=== PATIENT | female | born 1955 | race African-American/Black ===

== ENCOUNTER → 2017-03-22 | Outpatient (CLI) | payer OTHER ==
--- NOTE | 2017-03-23 08:24 | WOMENS IMAGING REPORT ---
EXAM DESCRIPTION: BILAT SCREENING MAMMO W/CAD COMPLETED DATE/TIME: 03/22/2017 9:56 am REASON FOR STUDY: Z12.31, ROUITNE SCREENING MAMMO Z12.31 ENCNTR SCREEN MAMMOGRAM FOR MALIGNANT NEOP LASM OF ALEXANDRA COMPARISON: 2015 TECHNIQUE: Standard craniocaudal and mediolateral oblique views of each breast recorded using MicroPort ([employer]a l acquisition. LIMITATIONS: None. FINDINGS: Findings present which are benign by mammographic criteria. No suspicious masses, calcifi cations or architectural distortion. Pertinent benign findings: Stable bilateral breast parenchymal calcifications. Bilateral stable intr amammary lymph nodes. Stable subcentimeter nodule left breast 5 to 6 o'clock position Read with the assistance of CAD. .[facility] - R2 Cenova Version 1.3 .[facility] Imaging - R2 Cenova Version 1.3 .[facility] - R2 Cenova Version 2.4 .[facility] - R2 Cenova Version 2.4 .[facility] - R2 Fbi Field Agent Version 9.2 Benign mammographic findings may include one or more of the following: Smooth masses, popcorn/rim/co arse calcifications, asymmetries, post-procedure changes, and lesions with long-standing stability. IMPRESSION: BENIGN MAMMOGRAPHIC FINDINGS. BIRADS 2 BREAST DENSITY: b. There are scattered areas of fibroglandular density. BIRAD: 2 BENIGN FINDING(S) RECOMMENDATION: ROUTINE SCREENING COMMENT: The patient has been notified of the results by letter per SA requirements. Additional no tification policies are in place for contacting patient with suspicious or incomplete findings. Quality ID #[id number]: The [employer] recommends an annual screening mammogram for women aged 40 years or over. This facility utilizes a reminder system to ensure that all patients receive reminder letters, and/or direct phone calls for appointments. This includes reminders for routine scr eening mammograms, diagnostic mammograms, or other Breast Imaging Interventions when appropriate. Th is patient will be placed in the appropriate reminder system. The [employer] (ACR) has developed recommendations for screening MRI of the breast s in certain patient populations, to be used in conjunction with mammography. Breast MRI surveillanc e may be appropriate for women with more than 20% lifetime risk of developing breast cancer as deter mined by genetic testing, significant family history of the disease, or history of mantle radiation f or Hodgkins Disease. ACR Practice Guidelines 2008. TECHNICAL DOCUMENTATION: FINDING NUMBER: (1) ASSESSMENT: (1) JOB ID: [id number] [facility] [place]- All Rights Reserved
== END ==
LOC: WI 08:50
PROVIDERS: ATTEND Nurse Practitioner Family
DX: Z12.31 Encounter for screening mammogram for malignant neoplasm of breast (principal)
CPT/HCPCS: 77067; G0202

== ENCOUNTER 2017-06-07 09:48 | Day surgery (SDC) | payer OTHER ==
[~2017-06-07 09:48] MED LIST: KETOROLAC TROMETHAMINE 0.45% 4 DROP/0.4 ML DROPERETTE OS PRN; LIDOCAINE 3.5% OPH GEL/PF 1 ML/TUBE OS PRN
[2017-06-07] MEDS ORDERED: LIDOCAINE 1% INJ-PF (10 MG/ML) 30 ML SDV ONE (10:02)
[2017-06-07] MEDS ORDERED: EPINEPHRINE INJ/PF 1 MG/1 ML AMPULE ONE (10:02)
[2017-06-07] MEDS ORDERED: TRYPAN BLUE 0.06 % OPH SOLN 0.5 ML DISP.SYRIN ONE (10:03)
[2017-06-07] MEDS ORDERED: CHONDR SU A NA/HYALUR INTRAOC KIT (SURGICARE) ONE (10:03)
[2017-06-07] MEDS: TETRACAINE HCL 0.5% OPH SOLN 2 ML OS PRN ×3 (10:08→10:45)
[2017-06-07] MEDS: CYCLOPENTOLATE 0.2%/PHENYLEPHRINE 1% OPH SOLN 2 ML OS PRN ×3 (10:09→10:32)
[2017-06-07] MEDS: TROPICAMIDE 1% OPH SOLN 3 ML OS PRN ×3 (10:09→10:32)
[2017-06-07] MEDS: BESIFLOXACIN HCL 0.6% OPH SUSP 5 ML BOTTLE OS PRN ×3 (10:10→11:06)
[2017-06-07] MEDS ORDERED: MIDAZOLAM 2 MG/2 ML INJ ONE ×2 (10:29)
--- NOTE | 2017-06-08 08:02 | [facility] OPERATIVE REPORT E ---
[facility] Operative Report NAME: GREGORIO POTTER AGE: 62Y DATE OF SURGERY: 06/07/2017 ROOM: PREOPERATIVE DIAGNOSIS: CATARACT, LEFT EYE. POSTOPERATIVE DIAGNOSIS: CATARACT, LEFT EYE. OPERATION: Cataract extraction with intraocular lens implant of the left eye. SURGEON: ROSALINO DANIELLE M.D. ANESTHESIA: Topical. PROCEDURE: After obtaining appropriate consent, the patient's left eye was prepped and draped in sterile fashion as well as the surgeon in a sterile manner and cataract surgery was started. First a paracentesis blade was used to make a small side-port incision. Viscoelastic was used to inflate the anterior chamber. Next a 2.4 mm incision was made with the paracentesis blade. A continuous capsulorrhexis incision was made using a cystotome and Utrata forceps. Following this hydrodissection was carried out to make the lens fully loose and mobile and it was rotated 90 degrees. Following this, a acipju-goz-lwssutz technique was used to phacoemulsify the lens with a CDE of 4.79. The remaining cortex was removed with irrigation/aspiration. Provisc was instilled into the capsular bag to inflate the bag. A SN60WF, 19.5 diopter lens was placed. The remaining viscoelastic material was removed with irrigation/aspiration. Following this, a 10-0 nylon suture was used to close the incision and it was found to be watertight. Vigamox was instilled in the eye and a protective shield was placed over the eye. The patient returned to the postoperative recovery in stable condition. DICTATING PHYSICIAN: ROSALINO DANIELLE M.D. [id number] PHY#: [id number] ID: [id number] JOB#: [id number] ACCT: [id number] cc:ROSALINO DANIELLE M.D. >
--- NOTE | 2017-06-08 08:07 | [facility] DISCHARGE SUMMARY E ---
[facility] Discharge Summary NAME: GREGORIO POTTER AGE: 62Y ADMITTED: 06/07/2017 DISCHARGED: 06/07/2017 HOSPITAL COURSE This is a 62-year-old patient who underwent cataract surgery of the left eye. DIAGNOSIS: CATARACT, LEFT EYE. INDICATIONS: He underwent surgery because he started having difficulty seeing small print and having glare secondary to headlights when driving. DISCHARGE INSTRUCTIONS: He is to be on a regular diet; no bending at the waist; no heavy lifting; he is to use Besivance, Ilevro and Durezol at 3:00 p.m. and 8:00 p.m.; and, sleep with a rigid shield; and I will see him for his 1-day postoperative tomorrow. DICTATING PHYSICIAN: ROSALINO DANIELLE M.D. [id number] PHY#: [id number] ID: [id number] JOB#: [id number] ACCT: [id number] cc:ROSALINO DANIELLE M.D. >
--- NOTE | 2017-06-08 11:38 | [facility] OPERATIVE REPORT E ---
[facility] Operative Report NAME: GREGORIO POTTER AGE: 62Y DATE OF SURGERY: 06/07/2017 ROOM: PREOPERATIVE DIAGNOSIS: CATARACT, LEFT EYE. POSTOPERATIVE DIAGNOSIS: CATARACT, LEFT EYE. OPERATION: Cataract extraction with intraocular lens implant of the left eye. SURGEON: ROSALINO DANIELLE M.D. ANESTHESIA: Topical. PROCEDURE: After obtaining appropriate consent, the patient's left eye was prepped and draped in sterile fashion as well as the surgeon in a sterile manner and cataract surgery was started. First a paracentesis blade was used to make a small side-port incision. Viscoelastic was used to inflate the anterior chamber. Next a 2.4 mm incision was made with the paracentesis blade. A continuous capsulorrhexis incision was made using a cystotome and Utrata forceps. Following this hydrodissection was carried out to make the lens fully loose and mobile and it was rotated 90 degrees. Following this, a cfhcuv-tbc-fqxycqg technique was used to phacoemulsify the lens with a CDE of 4.79. The remaining cortex was removed with irrigation/aspiration. Provisc was instilled into the capsular bag to inflate the bag. A SN60WF, 19.5 diopter lens was placed. The remaining viscoelastic material was removed with irrigation/aspiration. Following this, a 10-0 nylon suture was used to close the incision and it was found to be watertight. Vigamox was instilled in the eye and a protective shield was placed over the eye. The patient returned to the postoperative recovery in stable condition. DICTATING PHYSICIAN: ROSALINO DANIELLE M.D. [id number] [id number] PHY#: [id number] ID: [id number] JOB#: [id number] ACCT: [id number] cc:ROSALINO DANIELLE M.D. >
--- NOTE | 2017-06-08 11:43 | [facility] DISCHARGE SUMMARY E ---
[facility] Discharge Summary NAME: GREGORIO POTTER AGE: 62Y ADMITTED: 06/07/2017 DISCHARGED: 06/07/2017 HOSPITAL COURSE: This is a 62-year-old patient who underwent cataract extraction of the left eye. DIAGNOSIS: Cataract, left eye. INDICATIONS: She underwent surgery because she was having difficulty driving at night secondary to glare. DISCHARGE INSTRUCTIONS: She should be on a regular diet. No bending at her waist. No heavy lifting. She should use her Besivance, Ilevro, and Durezol at 3 p.m. and 8 p.m. and sleep with a rigid shield. I will see her for her 1 day postoperative tomorrow. DICTATING PHYSICIAN: ROSALINO DANIELLE M.D. [id number] PHY#: [id number] ID: [id number] JOB#: [id number] ACCT: [id number] cc:ROSALINO DANIELLE M.D. >
== END 2017-06-07 11:51 | disposition home or self-care (01) ==
LOC: SC 09:48
PROVIDERS: ATTEND Internal Medicine
PROC: 08RK3JZ Replacement of Left Lens with Synthetic Substitute, Percutaneous Approach (ICD-10-PCS; principal; 2017-06-07 11:00)
DX: H25.89 Other age-related cataract (principal); E78.00 Pure hypercholesterolemia, unspecified; I10 Essential (primary) hypertension; Z79.82 Long term (current) use of aspirin; Z79.899 Other long term (current) drug therapy
CPT/HCPCS: 66984; V2632; J2250; J3490 ×2; J0171; 142

== ENCOUNTER 2017-06-28 11:03 | Day surgery (SDC) | payer OTHER ==
[~2017-06-28 11:03] MED LIST changes: +BESIFLOXACIN HCL 0.6% OPH SUSP 5 ML BOTTLE OD PRN; +CHONDR SU A NA/HYALUR INTRAOC KIT (SURGICARE) ONE; +CYCLOPENTOLATE 0.2%/PHENYLEPHRINE 1% OPH SOLN 2 ML OD PRN; +EPINEPHRINE INJ/PF 1 MG/1 ML AMPULE ONE; +KETOROLAC TROMETHAMINE 0.45% 4 DROP/0.4 ML DROPERETTE OD PRN; -KETOROLAC TROMETHAMINE 0.45% 4 DROP/0.4 ML DROPERETTE OS PRN; +LIDOCAINE 1% INJ-PF (10 MG/ML) 30 ML SDV ONE; -LIDOCAINE 3.5% OPH GEL/PF 1 ML/TUBE OS PRN; +TETRACAINE HCL 0.5% OPH SOLN 2 ML OD PRN; +TROPICAMIDE 1% OPH SOLN 3 ML OD PRN; +TRYPAN BLUE 0.06 % OPH SOLN 0.5 ML DISP.SYRIN ONE
== END 2017-06-28 11:15 | disposition home or self-care (01) ==
LOC: SC 11:03
PROVIDERS: ATTEND Internal Medicine
DX: H25.89 Other age-related cataract (principal); R69 Illness, unspecified
CPT/HCPCS: J0171; J3490

== ENCOUNTER 2017-10-04 06:23 | Day surgery (SDC) | payer OTHER ==
[~2017-10-04 06:23] MED LIST changes: -BESIFLOXACIN HCL 0.6% OPH SUSP 5 ML BOTTLE OD PRN; -CHONDR SU A NA/HYALUR INTRAOC KIT (SURGICARE) ONE; -CYCLOPENTOLATE 0.2%/PHENYLEPHRINE 1% OPH SOLN 2 ML OD PRN; -EPINEPHRINE INJ/PF 1 MG/1 ML AMPULE ONE; -LIDOCAINE 1% INJ-PF (10 MG/ML) 30 ML SDV ONE; -TETRACAINE HCL 0.5% OPH SOLN 2 ML OD PRN; -TROPICAMIDE 1% OPH SOLN 3 ML OD PRN; -TRYPAN BLUE 0.06 % OPH SOLN 0.5 ML DISP.SYRIN ONE
[2017-10-04] MEDS ORDERED: FENTANYL CITRATE INJ/PF 100 MCG/2 ML AMPUL ONE (06:42)
[2017-10-04] MEDS ORDERED: MIDAZOLAM 2 MG/2 ML INJ ONE (06:42)
[2017-10-04] MEDS: BESIFLOXACIN HCL 0.6% OPH SUSP 5 ML BOTTLE OD PRN ×4 (06:55→08:04)
[2017-10-04] MEDS: CYCLOPENTOLATE 0.2%/PHENYLEPHRINE 1% OPH SOLN 2 ML OD PRN ×3 (06:55→07:15)
[2017-10-04] MEDS: TROPICAMIDE 1% OPH SOLN 3 ML OD PRN ×3 (06:55→07:15)
[2017-10-04] MEDS: TETRACAINE HCL 0.5% OPH SOLN 2 ML OD PRN ×3 (06:56→07:40)
[2017-10-04] MEDS ORDERED: TRYPAN BLUE 0.06 % OPH SOLN 0.5 ML DISP.SYRIN ONE (07:09)
[2017-10-04] MEDS ORDERED: CHONDR SU A NA/HYALUR INTRAOC KIT (SURGICARE) ONE ×2 (07:09→07:25)
[2017-10-04] MEDS ORDERED: EPINEPHRINE INJ/PF 1 MG/1 ML AMPULE ONE ×2 (07:09→07:33)
[2017-10-04] MEDS ORDERED: LIDOCAINE 1% INJ-PF (10 MG/ML) 30 ML SDV ONE (07:09)
--- NOTE | 2017-10-04 19:44 | [facility] OPERATIVE REPORT E ---
[facility] Operative Report NAME: GREGORIO POTTER AGE: 62Y DATE OF SURGERY: 10/04/2017 ROOM: PREOPERATIVE DIAGNOSIS: CATARACT, RIGHT EYE. POSTOPERATIVE DIAGNOSIS: CATARACT, RIGHT EYE. OPERATION: Cataract extraction with intraocular lens implant of the right eye. SURGEON: ROSALINO DANIELLE M.D. ANESTHESIA: Topical. PROCEDURE: After obtaining appropriate consent, the patient's right eye was prepped and draped in sterile fashion as well as the surgeon in a sterile manner and cataract surgery was started. First a paracentesis blade was used to make a small side-port incision. Viscoelastic was used to inflate the anterior chamber. Next a 2.4 mm incision was made with the paracentesis blade. A continuous capsulorrhexis incision was made using a cystotome and Utrata forceps. Following this hydrodissection was carried out to make the lens fully loose and mobile and it was rotated 90 degrees. Following this, a mtukpe-qcn-heipmtg technique was used to phacoemulsify the lens with a CDE of 2.45. The remaining cortex was removed with irrigation/aspiration. Provisc was instilled into the capsular bag to inflate the bag. A SN60WF, 19.5 diopter lens was placed. The remaining viscoelastic material was removed with irrigation/aspiration. Following this, a 10-0 nylon suture was used to close the incision and it was found to be watertight. Vigamox was instilled in the eye and a protective shield was placed over the eye. The patient returned to the postoperative recovery in stable condition. DICTATING PHYSICIAN: ROSALINO DANIELLE M.D. [id number] PHY#: [id number] ID: [id number] JOB#: [id number] ACCT: [id number] cc:ROSALINO DANIELLE M.D. >
--- NOTE | 2017-10-04 19:58 | [facility] DISCHARGE SUMMARY E ---
[facility] Discharge Summary NAME: GREGORIO POTTER AGE: 62Y ADMITTED: 10/04/2017 DISCHARGED: 10/04/2017 FINAL DIAGNOSIS: CATARACT, RIGHT EYE. HISTORY/CLINIC COURSE: This is a 62-year-old patient who underwent cataract extraction without complication, woke up in postoperative recovery in stable condition. He underwent surgery because he was having difficulty with glare at night, making it difficult to drive. Patient is to be on a regular diet. No bending at the waist, no heavy lifting. Patient should use the Besivance, Ilevro, and Durezol at 3 p.m. and 8 p.m., and sleep with a rigid shield. I will see him for 1 day postoperative tomorrow. DICTATING PHYSICIAN: ROSALINO DANIELLE M.D. [id number] PHY#: [id number] ID: [id number] JOB#: [id number] ACCT: [id number] cc:ROSALINO DANIELLE M.D. >
== END 2017-10-04 08:38 | disposition home or self-care (01) ==
LOC: SC 06:23
PROVIDERS: ATTEND Internal Medicine
PROC: 08RJ3JZ Replacement of Right Lens with Synthetic Substitute, Percutaneous Approach (ICD-10-PCS; principal; 2017-10-04 07:30)
DX: H25.89 Other age-related cataract (principal); H20.042 Secondary noninfectious iridocyclitis, left eye
CPT/HCPCS: 66984; V2632; J2250; J3490 ×2; J0171; J3010; 142

== ENCOUNTER → 2018-12-25 | Outpatient (CLI) | payer OTHER ==
[2018-12-26 16:39] LABS: HGB SOLUBILITY RESULT Negative (Negative)
[2018-12-26 17:37] LABS: CYTOPLASMIC (C-ANCA) <1:20 titer (Neg:<1:20)
[2018-12-27 10:43] LABS: ATYPICAL PANCA <1:20 titer (Neg:<1:20); PERINUCLEAR (P-ANCA) <1:20 titer (Neg:<1:20)
== END ==
LOC: OD 12:27
PROVIDERS: ATTEND Ophthalmology
DX: H35.61 Retinal hemorrhage, right eye (principal); H35.063 Retinal vasculitis, bilateral; H35.443 Age-related reticular degeneration of retina, bilateral
CPT/HCPCS: 36415; 82164; 83020; 86021

== ENCOUNTER 2019-06-03 09:39 | Emergency (ER) | payer OTHER ==
--- NOTE | 2019-06-03 09:54 | ER Document Report ---
ED Medical Screen (RME) - General Chief Complaint: S/S of Possible Stroke Stated Complaint: STROKE LIKE SYMPTOMS Time Seen by Provider: 06/03/19 09:45 Primary Care Provider: SUSIE BAUER MD [Primary Care Provider] - Follow up as needed Information source: Patient, Relative - Notes: HPI: 64-year-old female accompanied by her significant other who was awakened by her about a hour ago stating that she needed help. He noticed left-sided facial droop, slurred speech, and weakness so he brought her in. He states at about 5 PM last night was when he last saw her before he went to bed and she was her usual self then, and he did not see her again until she woke him up about 8:30a and she was having these sx so he brought her in. ros: denies pain, left sided weakness, PE:>>>> PHYSICAL_EXAM: GENERAL_APPEARANCE: well_nourished, alert, cooperative, no_acute_distress, mild_obvious_discomfort. pleasant, left sided facial droop, some slurred speech and delayed response time, , in no sign of pain or resp distress, VITALS: reviewed, see vital signs table. HEAD: no_swelling\tenderness on the head. atraumatic. no thomas signs. no raccoons eyes. EYES: PERRL, EOMI, conjunctiva_clear. NOSE: no_nasal_discharge. MOUTH: (-)decreased moisture. THROAT: no_tonsilar_inflammation, no_airway_obstruction. NECK: supple, no_neck_tenderness, full rom. full strength. LUNGS: no_wheezing, ctab (-)accessory muscle use, good air exchange bilateral. HEART: normal_rate, normal_rhythm, EXTREMITIES: strength 5/5 in all_extremities but left arm is 4/5, good pulses in all_extremities, no_swelling\tenderness in the extremities, no_edema. full rom. gait not assessed. good pulses. brisk cap refill. 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 NEURO: left facial droop, slurred speech, left arm weakness, symmetric forehead rise. SKIN: warm, dry, good_color, no_rash. MENTAL_STATUS: speech_delayed and slurred, oriented_X_3, blunted_affect, responds_appropriately to questions eventually but only answers in 1-2 words. i did a brief assessment of pt and pt taken immediately to CT. charge nurse informed this could be a code stroke. MDM: I have ordered labs and initial work-up and patient will be transferred to the main ER for further work-up. I have greeted and performed a rapid initial assessment of this patient. A comprehensive ED assessment and evaluation of the patient, analysis of test results and completion of medical decision making process will be conducted by an additional ED providers. Documentation achieved through voice recording which my lead to some occasional accidental typographical errors. Extensive efforts have been made to proof read documentation to make sure these are the least as possible Category Date Time Status Accucheck (ED) NOW Care 06/03/19 09:41 Active Continuous Cardiac Monitoring (ED) CONTINUOUS Care 06/03/19 09:41 Active ED Nursing Stroke Protocol NOW Care 06/03/19 09:41 Active EKG Documentation STAT Care 06/03/19 09:42 Active Head of Bed >30 Degrees (ED) NOW Care 06/03/19 09:41 Active MEND Neuro Exam STAT,Q3 Care 06/03/19 09:41 Active Oxygen (ED) Nasal Cannula 2 lpm Care 06/03/19 09:41 Active PCT AccuChek Documentation NOW Care 06/03/19 09:42 Active Pulse Oximeter Continuous (ED) CONTINUOUS Care 06/03/19 09:41 Active Saline Lock (ED) NOW Care 06/03/19 09:41 Active Vital Signs (ED) .Q15m X4 Care 06/03/19 09:41 Active CHEST SINGLE VIEW [RAD] Stat Exams 06/03/19 09:[address] HEAD WITHOUT [CT] Stat Exams 06/03/19 09:41 Ordered CBC WITH DIFF [HEME] Stat Lab 06/03/19 09:41 Ordered COMPREHENSIVE METABOLIC PANEL [CHEM] Stat Lab 06/03/19 09:41 Ordered CREATINE KINASE MB [CHEM] Stat Lab 06/03/19 09:41 Ordered CREATINE KINASE [CHEM] Stat Lab 06/03/19 09:41 Ordered PARTIAL THROMBOPLASTIN TIME [COAG] Stat Lab 06/03/19 09:41 Ordered PROTHROMBIN TIME/INR STROKE [COAG] Stat Lab 06/03/19 09:41 Ordered TROPONIN I [CHEM] Stat Lab 06/03/19 09:41 Ordered EKG ER ONLY [ER] Stat Oth 06/03/19 09:41 Ordered TRAVEL OUTSIDE OF THE [place] IN LAST 30 DAYS: No - Related Data Allergies/Adverse Reactions: seasonal Allergy (Uncoded 06/03/19 09:40) Past Medical History - Past Medical History Cardiac Medical History: Reports: Hx Hypercholesterolemia, Hx Hypertension Denies: Hx Heart Attack Pulmonary Medical History: Denies: Hx Asthma Neurological Medical History: Denies: Hx Cerebrovascular Accident, Hx Seizures GI Medical History: Denies: Hx Hepatitis, Hx Hiatal Hernia, Hx Ulcer Infectious Medical History: Denies: Hx Hepatitis Past Surgical History: Reports: Hx Cardiac Catheterization, Hx Section. Denies: Hx Mastectomy, Hx Open Heart Surgery - stents X1 2013, Hx Pacemaker - Immunizations Hx Diphtheria, Pertussis, Tetanus Vaccination: No Doctor's Discharge - Discharge Referrals: SUSIE BAUER MD [Primary Care Provider] - Follow up as needed
--- NOTE | 2019-06-03 10:20 | RADIOLOGY REPORT (SQ) ---
EXAM DESCRIPTION: CT HEAD WITHOUT COMPLETED DATE/TIME: 06/03/2019 9:57 am REASON FOR STUDY: stroke like symptoms / facial droop COMPARISON: None. TECHNIQUE: Axial images acquired through the brain without intravenous contrast. Images reviewed wi th bone, brain and subdural windows. Additional sagittal and coronal reconstructions were generated. Images stored on PACS. All CT scanners at this facility use dose modulation, iterative reconstruction, and/or weight based d osing when appropriate to reduce radiation dose to as low as reasonably achievable (ALARA). [facility]: Dose Right [facility]: CareDose [facility]: Dose Right [facility]: Teradose 4D [facility]: Smart Technologies RADIATION DOSE: CT Rad equipment meets quality standard of care and radiation dose reduction techniq ues were employed. CTDIvol: 53.2 mGy. DLP: 991 mGy-cm. mGy. LIMITATIONS: None. FINDINGS: VENTRICLES: Normal size and contour. CEREBRUM: There is large area of hypoattenuation involving the right MCA territory, predominantly the frontal, parietal lobes an insula. There is associated loss of wilson-white differentiation with loca l swelling and asymmetric sulcal effacement. No significant mass effect or midline shift. No eviden ce of intracranial hemorrhage. No evidence of intracranial mass. CEREBELLUM: No masses. No hemorrha ge. No alteration of density. No evidence for acute infarction. EXTRAAXIAL SPACES: No fluid collections. No masses. ORBITS AND GLOBE: No intra- or extraconal masses. Normal contour of globe without masses. CALVARIUM: No fracture. PARANASAL SINUSES: No fluid or mucosal thickening. SOFT TISSUES: No mass or hematoma. OTHER: No other significant finding. IMPRESSION: Large area of hypoattenuation involving the right MCA territory, predominantly frontopar ietal lobes and insula, compatible with acute infarct. No evidence of intracranial hemorrhage. No s ignificant midline shift. EVIDENCE OF ACUTE STROKE: YES. RIGHT MCA. Pertinent findings on the imaging study reported as a CRITICAL RESULT to Dr. Parra At10:07 on 2018. Category of Critical Result: Acute infarct COMMENT: Quality ID # [id number]: Final reports with documentation of one or more dose reduction techniques (e.g., Automated exposure control, adjustment of the mA and/or kV according to patient size, use of iterative reconstruction technique) TECHNICAL DOCUMENTATION: JOB ID: [id number] [employer]- All Rights Reserved Reading location - IP/workstation name: [email or web address]
[2019-06-03 10:21] LABS: ABSOLUTE BASOPHILS # (AUTO) 0.1 10^3/uL (0.0-0.2); ABSOLUTE EOSINOPHILS # (AUTO) 0.2 10^3/uL (0.0-0.6); ABSOLUTE LYMPHOCYTES (AUTO) 2.8 10^3/uL (0.5-4.7); ABSOLUTE MONOCYTES (AUTO) 0.5 10^3/uL (0.1-1.4); ABSOLUTE NEUT (AUTO) 2.6 10^3/uL (1.7-8.2); BASOPHILS % (AUTO) 1.2 % (0-2); EOSINOPHILS % (AUTO) 2.7 % (0-6); HEMATOCRIT 40.3 % (36.0-47.0); HEMOGLOBIN 13.3 g/dL (12.0-15.5); INTERNATIONAL RATION (INR) 1.01; LYMPHOCYTES % (AUTO) 45.6 % (13-45); MEAN CORPUSCULAR HEMOGLOBIN 31.2 pg (27.0-33.4); MEAN CORPUSCULAR VOLUME 95 fl (80-97); MONOCYTES % (AUTO) 8.4 % (3-13); PLATELET COUNT 243 10^3/uL (150-450); RED BLOOD COUNT 4.26 10^6/uL (3.72-5.28); RED CELL DISTRIBUTION WIDTH 14.6 % (11.5-14.0); SEGMENTED NEUTROPHILS % (AUTO) 42.1 % (42-78); TOTAL CELLS COUNTED % (AUTO) 100 %; WHITE BLOOD COUNT 6.2 10^3/uL (4.0-10.5)
[2019-06-03 10:22] LABS: PARTIAL THROMBOPLASTIN TIME 24.3 SEC (23.5-35.8)
[2019-06-03 10:23] LABS: PROTHROMBIN TIME 13.3 SEC (11.4-15.4)
--- NOTE | 2019-06-03 10:25 | ER Document Report ---
ED Neuro Symptoms/Deficit - General Chief Complaint: S/S of Possible Stroke Stated Complaint: STROKE LIKE SYMPTOMS Time Seen by Provider: 06/03/19 09:45 Primary Care Provider: SUSIE BAUER MD [ASSOCIATE] - Follow up as needed Notes: 64-year-old female presents to the emergency department with strokelike symptoms. last seen the patient normal at 5 PM last night. He states that her dogs were barking last night at 3 AM and he heard the patient get up and go the bathroom and go back to bed but did not see her directly. Patient slept in and a little after 9 she had not gotten up the patient went to the bathroom to get into the shower and then she called for her and stated her left side was weak. Patient stated she woke up like this and is getting worse. The patient states she woke up like this at 9 and is been progressively getting worse. She stated at 3 AM she felt fine going to the bathroom and coming back did not notice any symptoms The patient complains of severe numbness left face left arm left leg also weakness left arm left leg left face slurring her speech and drooling. Patient has never had a stroke before according to the TRAVEL OUTSIDE OF THE [place] IN LAST 30 DAYS: No - Related Data Allergies/Adverse Reactions: seasonal Allergy (Uncoded 06/03/19 09:40) Past Medical History - General Information source: Patient, Relative - - Social History Smoking Status: Unknown if Ever Smoked Family History: Reviewed & Not Pertinent Patient has suicidal ideation: No Patient has homicidal ideation: No - Past Medical History Cardiac Medical History: Reports: Hx Hypercholesterolemia, Hx Hypertension Denies: Hx Heart Attack Pulmonary Medical History: Denies: Hx Asthma Neurological Medical History: Denies: Hx Cerebrovascular Accident, Hx Seizures Renal/ Medical History: Denies: Hx Peritoneal Dialysis GI Medical History: Denies: Hx Hepatitis, Hx Hiatal Hernia, Hx Ulcer Infectious Medical History: Denies: Hx Hepatitis Past Surgical History: Reports: Hx Cardiac Catheterization, Hx Section. Denies: Hx Mastectomy, Hx Open Heart Surgery - stents X1 2014, Hx Pacemaker - Immunizations Hx Diphtheria, Pertussis, Tetanus Vaccination: No Review of Systems - Review of Systems Constitutional: denies: Chills, Fever EENT: denies: Nose discharge, Throat pain Cardiovascular: denies: Chest pain, Palpitations Respiratory: denies: Short of breath Gastrointestinal: denies: Abdominal pain Genitourinary: denies: Dysuria Neurological/Psychological: Sensory change, Weakness, Numbness. denies: Headaches -: Yes All other systems reviewed and negative Physical Exam - Notes Notes: GENERAL_APPEARANCE: well_nourished, alert, cooperative, ill-appearing VITALS: reviewed, see vital signs table. HEAD: no_swelling\\tenderness on the head. EYES: PERRL, EOMI, conjunctiva_clear. Gaze is more to the right but can be forced to the left NOSE: no_nasal_discharge. MOUTH: (-)decreased moisture. THROAT: no_tonsilar_inflammation, no_airway_obstruction. no_lymphadenopathy NECK: supple, no_neck_tenderness, (-)thyromegaly. BACK: no_back_tenderness. CHEST_WALL: no_chest_tenderness. LUNGS: no_wheezing, no_rales, no_rhonchi, (-)accessory muscle use, good air exchange bilateral. HEART: normal_rate, normal_rhythm, normal_S1, normal_S2, (-)S3, (-)S4, no_murmur, no_rub. ABDOMEN: soft, no_abd_tenderness, (-)guarding, (-)rebound, no_organomegaly, no_abd_masses. EXTREMITIES: strength 5/5 in all_extremities, good pulses in all_extremities, no_swelling\\tenderness in the extremities, no_edema. SKIN: warm, dry, good_color, no_rash. MENTAL_STATUS: speech_clear, oriented_X_3, normal_affect, responds_appropriately to questions. NEURO: Left arm touches the bed on drift testing, left leg has drift touches the bed, CN 2-12 intact septum left facial droop noted, DTR 2+ symmetric x 4, No cerbellar signs, sensory numbness left face left arm left leg Course - Re-evaluation Re-evalutation: 06/03/19 10:32 The patient arrives with MCA type infarct symptoms. The patient was immediately rushed for a noncontrasted CT. The patient was already having signs of a right MCA territory infarct. Time last seen normal varies between 5 PM and 3 AM. 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 If we go on 5 PM were still within 24 hours. The patient is not a candidate for TPA due to timing but a candidate for neuro intervention. I gave the preference for [facility] he chose [facility]. I called [facility] and spoke with Dr. López urologist. He is accepted the patient for neuro intervention. The patient will be flown to [facility] to be evaluated for neuro intervention. CTA of the head neck was done here and will be power shared along with the o riginal CT to [facility]. The patient's airway has remained patent. Patient be transferred via helicopter for strokelike symptoms. - Laboratory Result Diagrams: 06/03/19 10:10 06/03/19 10:10 Laboratory results interpreted by me: 06/03/19 10:01 POC Glucose 126 H - Diagnostic Test Radiology reviewed: Reports reviewed Radiology results interpreted by me: 06/03/19 10:[address] 06/03/19 09:41 IMPRESSION: Large area of hypoattenuation involving the right MCA territory, predominantly frontoparietal lobes and insula, compatible with acute infarct. No evidence of intracranial hemorrhage. No significant midline shift. EVIDENCE OF ACUTE STROKE: YES. RIGHT MCA. Pertinent findings on the imaging study reported as a CRITICAL RESULT to Dr. Parra At10:07 on 06/03/2019. Category of Critical Result: Acute infarct - EKG Interpretation by Me EKG shows normal: Sinus rhythm Rate: Normal Rhythm: NSR Critical Care Note - Critical Care Note Total time excluding time spent on procedures (mins): 40 ED NIH Stroke Scale - NIH Stroke Scale *: 1. NIH scale should be completed with appropriate accompanying assessment tools. *: 2. The NIH should reflect what the patient is capable of doing and should not be coached by the clinician. 1a. Level of Consciousness: 0=Alert;keenly responsive -: 1=Drowsy -: 2=Obtunded -: 3=Coma/unresponsive or reflex to noxious stimuli. 1a. Responses: 0 1b. Orientation Questions: a. What month is it? -: b. How old are you? -: 0=Answers both questions correctly. -: 1=Answers one question correctly or patient is intubated or has orotracheal trauma. -: 2=Answers neither question correctly. 1b. Responses: 0 1c. Response to commands: a. Open and close eyes? -: b. Brim Greaser Operator and release hand? -: Credit is given despite weakness. Demonstration of task is permitted. Substitute command if hands cannot be used. -: 0=Performs both tasks correctly -: 1=Performs one task correctly -: 2=Performs neither task correctly 1c. Responses: 0 2. Gaze: Establish eye contact and instruct patient to "Follow my finger" -: 0=Normal -: 1=Partial gaze palsy. Gaze is abnormal in one or both eyes, but where forced deviation or total gaze paresis is not present. -: 2=Forced deviation or total gaze paresis. 2. Responses: 1 3. Visual [place]: Sees fingers in all four quadrants. -: 0=No visual loss. -: 1=Partial hemianopsia. -: 2=Complete hemianopsia. -: 3=Bilateral hemianopsia (including Cortical blindness) 3. Responses: 0 4. Facial Movement: Instruct patient to: -: a. Show me your teeth -: b. Raise your eyebrows -: c. Close your eyes -: d. Smile -: 0=Normal symmetrical movement -: 1=Minor paralysis (flattened nasolabial fold, asymmetry on smiling). -: 2=Partial paralysis (total or near total paralysis of lower face). -: 3=Complete paralysis of upper and lower face 4. Responses: 2 5. Motor functions (left arm): Alternate sides and extend each arm with palms down (90 degrees if sitting or 45 degrees for supine). -: 0=No drift;limb holds for full 10 seconds. -: 1=Drift; limb holds but drifts down before full 10 seconds, but does not hit bed. -: 2=Some effort against gravity; limb cannot get to or maintain position. -: 3=No effort against gravity; limb falls. -: 4=No movement. -: UN=Amputation, joint fusion, explain in comments. 5. Responses (left arm): 2 5. Motor Functions (right arm): Alternate sides and extend each arm with palms down (90 degrees if sitting or 45 degrees for supine). -: 0=No drift;limb holds for full 10 seconds. -: 1=Drift; limb holds but drifts down before full 10 seconds, but does not hit bed. -: 2=Some effort against gravity; limb cannot get to or maintain position. -: 3=No effort against gravity; limb falls. -: 4=No movement. -: UN=Amputation, joint fusion, explain in comments. 5. Responses (right arm): 0 6. Motor Functions (left leg): With patient lying supine, alternate sides and extend each leg (30 degrees always while supine). -: 0=No drift, leg holds position for full 5 seconds -: 1=Drift; leg falls before full 5 seconds but does not hit bed. -: 2=Some effort against gravity, leg falls to bed but some effort against gravity. -: 3=No effort against gravity, leg falls to bed immediately. -: 4=No movement. -: UN=Amputation, joint fusion; explain in comments. 6. Responses (left leg): 1 6. Motor Functions (right leg): With patient lying supine, alternate sides and extend each leg (30 degrees always while supine). -: 0=No drift, leg holds position for full 5 seconds -: 1=Drift; leg falls before full 5 seconds but does not hit bed. -: 2=Some effort against gravity, leg falls to bed but some effort against gravity. -: 3=No effort against gravity, leg falls to bed immediately. -: 4=No movement. -: UN=Amputation, joint fusion; explain in comments. 6. Responses (right leg): 0 7. Limb Ataxia: With eyes open instruct patient to: -: a. "Touch your finger to your nose". -: b. "Touch your heel to your rivas" -: 0=Absent -: 1=Present in one limb. -: 2=Present in two limbs. -: UN=Amputation or joint fusion; explain in comments. 7. Responses: 0 8. Sensory: Test sensation using pinprick or noxious stimuli. Test as many body parts as possible. -: 0=Normal;no sensory loss -: 1=Mile to moderate sensory loss (patient feels pin prick but is less sharp on affected side). -: 2=Severe or total sensory loss. 8. Responses: 1 9. Best Language: Instruct patient to: -: a. "Describe what you see in this picture." -: b. "Name the items in this picture." -: c. "Read these sentences." -: 0=No aphasia, normal -: 1=Mild to moderate aphasia. -: 2=Severe aphasia -: 3=Mute, global aphasia, no usable speech or auditory comprehension. 9. Responses: 1 10. Articulation, Dysarthia: Instruct patient to: -: "Read these words" or "Repeat these words" -: 0=Normal -: 1=Mild to moderate; patient may slur some words but can be understood without difficulty. -: 2=Severe; patients speech so slurred as to be unintelligible in the absence of dysphasia. -: UN=Intubated or other physical barrier, explain in comments. 10. Responses: 1 11. Extinction or inattention: 0=No abnormality -: 1= Visual, tactile, auditory, spatial, or personal inattention or extinction to bilateral simulation in one or the sensory modalities. -: 2=Profound lauren-inattention or lauren-inattention to more than one modality; does not recognize own hand. 11. Responses: 0 Total Score: 9 Discharge - Discharge Clinical Impression: Acute right MCA stroke Condition: Critical Disposition: [facility] Referrals: SUSIE BAUER MD [ASSOCIATE] - Follow up as needed
[2019-06-03 10:42] LABS: ALBUMIN 4.4 g/dL (3.5-5.0); ALKALINE PHOSPHATASE 92 U/L (38-126); ANION GAP 9 (5-19); ASPARTATE AMINO TRANSFERASE 30 U/L (14-36); BILIRUBIN,DIRECT 0.1 mg/dL (0.0-0.4); BILIRUBIN,TOTAL 0.8 mg/dL (0.2-1.3); BLOOD UREA NITROGEN 22 mg/dL (7-20); CALCIUM 9.9 mg/dL (8.4-10.2); CARBON DIOXIDE 32 mmol/L (22-30); CHLORIDE 101 mmol/L (98-107); CREATINE KINASE 406 U/L (30-135); GLUCOSE 140 mg/dL (75-110); POTASSIUM 3.5 mmol/L (3.6-5.0); TOTAL PROTEIN 7.4 g/dL (6.3-8.2)
[2019-06-03 10:57] LABS: TROPONIN I < 0.012 ng/mL
[2019-06-03 10:58] VITALS: BP 165/82
--- NOTE | 2019-06-03 10:59 | RADIOLOGY REPORT (SQ) ---
EXAM DESCRIPTION: CHEST SINGLE VIEW COMPLETED DATE/TIME: 06/03/2019 10:46 am REASON FOR STUDY: stroke like symptoms / facial droop COMPARISON: 08/09/2014 EXAM PARAMETERS: NUMBER OF VIEWS: One view. TECHNIQUE: Single frontal radiographic view of the chest acquired. RADIATION DOSE: NA LIMITATIONS: None. FINDINGS: LUNGS AND PLEURA: No opacities, masses or pneumothorax. No pleural effusion. MEDIASTINUM AND HILAR STRUCTURES: No masses. Contour normal. HEART AND VASCULAR STRUCTURES: Enlarged cardiac silhouette. Aortic atherosclerosis per BONES: No acute findings. HARDWARE: None in the chest. OTHER: No other significant finding. IMPRESSION: Enlarged cardiac silhouette without evidence of acute cardiopulmonary process. TECHNICAL DOCUMENTATION: JOB ID: [id number] [employer]- All Rights Reserved Reading location - IP/workstation name: [email or web address]
--- NOTE | 2019-06-03 11:31 | RADIOLOGY REPORT (SQ) ---
EXAM DESCRIPTION: CTA HEAD; CTA NECK COMPLETED DATE/TIME: 06/03/2019 10:34 am; 06/03/2019 10:35 am REASON FOR STUDY: MCA stroke COMPARISON: Same day CT TECHNIQUE: Post IV contrast scanning, thin section axial imaging through the brain to evaluate the a rterial structures. Source and MIP images are saved and reviewed on PACS. Advanced 3D imaging as volume-rendering, MIPs, SSD performed? yes All CT scanners at this facility use dose modulation, iterative reconstruction, and/or weight based d osing when appropriate to reduce radiation dose to as low as reasonably achievable (ALARA). [facility]: Dose Right [facility]: CareDose [facility]: Dose Right [facility]: Teradose 4D [facility]: Sensum CONTRAST TYPE AND DOSE: contrast/concentration: Isovue 350.00 mg/ml; Total Contrast Delivered: 70.0 ml; Total Saline Delivered: 71.0 ml RENAL FUNCTION: See chart LIMITATIONS: None. FINDINGS: CTA NECK ARCH: Three-vessel aortic arch. No aneurysm. Scattered coronary atherosclerosis. CAROTIDS: Bilateral common carotid artery is are widely patent without high-grade stenosis. Bilater al external carotid arteries are patent. The right internal carotid artery is non-opacified just dis vira to the bifurcation to the level of the skullbase. There is diminutive opacification of the dave us and cavernous portions as detailed below. The left internal carotid artery is patent throughout i ts course without high-grade stenosis. Minimal atherosclerosis noted just distal to the carotid bulb . VERTEBRAL: Bilateral vertebral arteries are patent throughout their course. No high-grade stenosis. No aneurysm. No dissection. BONES: No acute bony abnormality. Mild multilevel degenerative changes of the cervical spine. No s uspicious osseous lesions. SOFT TISSUES: No discrete soft tissue mass. No mucosal irregularity. Unremarkable thyroid. No lym phadenopathy. LUNGS: No acute findings. CTA HEAD [place]: The right internal carotid artery is non-opacified from the bifurcation to the leve l of the skullbase. There is diminutive opacification of the petrous and cavernous portions with asy mmetrically decreased size. The M1 and M2 on the right is opacified with non opacification of the M3 branches. Left middle cerebral artery is unremarkable. Bilateral anterior cerebral arteries are op acified [place] appears complete. No aneurysm. POSTERIOR CIRCULATION: The distal vertebral arteries are patent as is the basilar artery. No aneurysm . BRAIN: Again seen is hypoattenuation of the right frontal parietal lobes and insula. No gross enhanc ing lesions as visualized. The superior cerebral hemispheres are not included in the field of view. BONES: : No acute findings. No suspicious osseous lesions. SINUSES: No fluid or mucosal thickening. OTHER: No other significant finding. IMPRESSION: 1. Non opacification of the right internal carotid artery from the level of the bifurca tion to the skullbase. 2. Diminutive opacification of the petrous and cavernous right ICA. There is cut off of the right M 3 branches with asymmetrically decreased opacification compared to the left and corresponding to prev iously seen area of right MCA territory infarct. 3. Unremarkable left ICA. Unremarkable posterior circulation. Pertinent findings on the imaging study reported as a CRITICAL RESULT to NICK BAUTISTA MD at11:24 o n 06/03/2019. TECHNICAL DOCUMENTATION: JOB ID: [id number] Quality ID # [id number]: Final reports with documentation of one or more dose reduction techniques (e.g., Au tomated exposure control, adjustment of the mA and/or kV according to patient size, use of iterative reconstruction technique) 2010 [email or web address]- All Rights Reserved Reading location - IP/workstation name: [email or web address]
--- NOTE | 2019-06-03 11:31 | RADIOLOGY REPORT (SQ) ---
EXAM DESCRIPTION: CTA HEAD; CTA NECK COMPLETED DATE/TIME: 06/03/2019 10:34 am; 06/03/2019 10:35 am REASON FOR STUDY: MCA stroke COMPARISON: Same day CT TECHNIQUE: Post IV contrast scanning, thin section axial imaging through the brain to evaluate the a rterial structures. Source and MIP images are saved and reviewed on PACS. Advanced 3D imaging as volume-rendering, MIPs, SSD performed? yes All CT scanners at this facility use dose modulation, iterative reconstruction, and/or weight based d osing when appropriate to reduce radiation dose to as low as reasonably achievable (ALARA). [facility]: Dose Right [facility]: CareDose [facility]: Dose Right [facility]: Teradose 4D [facility]: [employer] CONTRAST TYPE AND DOSE: contrast/concentration: Isovue 350.00 mg/ml; Total Contrast Delivered: 70.0 ml; Total Saline Delivered: 71.0 ml RENAL FUNCTION: See chart LIMITATIONS: None. FINDINGS: CTA NECK ARCH: Three-vessel aortic arch. No aneurysm. Scattered coronary atherosclerosis. CAROTIDS: Bilateral common carotid artery is are widely patent without high-grade stenosis. Bilater al external carotid arteries are patent. The right internal carotid artery is non-opacified just dis vira to the bifurcation to the level of the skullbase. There is diminutive opacification of the dave us and cavernous portions as detailed below. The left internal carotid artery is patent throughout i ts course without high-grade stenosis. Minimal atherosclerosis noted just distal to the carotid bulb . VERTEBRAL: Bilateral vertebral arteries are patent throughout their course. No high-grade stenosis. No aneurysm. No dissection. BONES: No acute bony abnormality. Mild multilevel degenerative changes of the cervical spine. No s uspicious osseous lesions. SOFT TISSUES: No discrete soft tissue mass. No mucosal irregularity. Unremarkable thyroid. No lym phadenopathy. LUNGS: No acute findings. CTA HEAD [place]: The right internal carotid artery is non-opacified from the bifurcation to the leve l of the skullbase. There is diminutive opacification of the petrous and cavernous portions with asy mmetrically decreased size. The M1 and M2 on the right is opacified with non opacification of the M3 branches. Left middle cerebral artery is unremarkable. Bilateral anterior cerebral arteries are op acified [place] appears complete. No aneurysm. POSTERIOR CIRCULATION: The distal vertebral arteries are patent as is the basilar artery. No aneurysm . BRAIN: Again seen is hypoattenuation of the right frontal parietal lobes and insula. No gross enhanc ing lesions as visualized. The superior cerebral hemispheres are not included in the field of view. BONES: : No acute findings. No suspicious osseous lesions. SINUSES: No fluid or mucosal thickening. OTHER: No other significant finding. IMPRESSION: 1. Non opacification of the right internal carotid artery from the level of the bifurca tion to the skullbase. 2. Diminutive opacification of the petrous and cavernous right ICA. There is cut off of the right M 3 branches with asymmetrically decreased opacification compared to the left and corresponding to prev iously seen area of right MCA territory infarct. 3. Unremarkable left ICA. Unremarkable posterior circulation. Pertinent findings on the imaging study reported as a CRITICAL RESULT to NICK BAUTISTA MD at11:24 o n 06/03/2019. TECHNICAL DOCUMENTATION: JOB ID: [id number] Quality ID # [id number]: Final reports with documentation of one or more dose reduction techniques (e.g., Au tomated exposure control, adjustment of the mA and/or kV according to patient size, use of iterative reconstruction technique) 2010 [employer]- All Rights Reserved Reading location - IP/workstation name: [email or web address]
--- NOTE | 2019-06-04 14:49 | EKG REPORT ---
SEVERITY:- ABNORMAL ECG - SINUS RHYTHM FIRST DEGREE AV BLOCK BORDERLINE T ABNORMALITIES, INFERIOR LEADS : Confirmed by: Radha Chau 04-Jun-2019 14:48:54
== END 2019-06-03 11:02 | disposition short-term general hospital (02) ==
LOC: ER 09:39
DX: I63.511 Cerebral infarction due to unspecified occlusion or stenosis of right middle cerebral artery (principal); R47.81 Slurred speech; G81.94 Hemiplegia, unspecified affecting left nondominant side; R20.0 Anesthesia of skin; I10 Essential (primary) hypertension; R29.709 NIHSS score 9
CPT/HCPCS: 36415; 70450; 70496; 70498; 71045; 80053; 82550; 82553; 82962; 84484; 85025; 85610; 85730; 93005; 93010; 99291

== ENCOUNTER → 2019-08-08 | Outpatient (CLI) | payer OTHER ==
[2019-08-08 11:09] LABS: ABSOLUTE EOSINOPHILS # (AUTO) 0.2 10^3/uL (0.0-0.6); ABSOLUTE LYMPHOCYTES (AUTO) 2.4 10^3/uL (0.5-4.7); ABSOLUTE MONOCYTES (AUTO) 0.4 10^3/uL (0.1-1.4); ABSOLUTE NEUT (AUTO) 2.3 10^3/uL (1.7-8.2); BASOPHILS % (AUTO) 0.6 % (0-2); EOSINOPHILS % (AUTO) 3.7 % (0-6); HEMATOCRIT 39.1 % (36.0-47.0); HEMOGLOBIN 13.1 g/dL (12.0-15.5); LYMPHOCYTES % (AUTO) 44.6 % (13-45); MEAN CORPUSCULAR HEMOGLOBIN 31.5 pg (27.0-33.4); MEAN CORPUSCULAR HGB CONC 33.5 g/dL (32.0-36.0); MEAN CORPUSCULAR VOLUME 94 fl (80-97); MONOCYTES % (AUTO) 8.1 % (3-13); PLATELET COUNT 213 10^3/uL (150-450); RED BLOOD COUNT 4.17 10^6/uL (3.72-5.28); RED CELL DISTRIBUTION WIDTH 14.7 % (11.5-14.0); TOTAL CELLS COUNTED % (AUTO) 100 %; WHITE BLOOD COUNT 5.4 10^3/uL (4.0-10.5)
[2019-08-08 11:14] LABS: APPEARANCE,URINE SLIGHTLY-CLOUDY; BILIRUBIN,URINE NEGATIVE (NEGATIVE); COLOR,URINE YELLOW; GLUCOSE, URINE NEGATIVE (NEGATIVE); KETONES,URINE NEGATIVE (NEGATIVE); LEUKOCYTE ESTERASE,URINE NEGATIVE (NEGATIVE); NITRITE,URINE NEGATIVE (NEGATIVE); PROTEIN,URINE NEGATIVE (NEGATIVE); URINE SPECIFIC GRAVITY 1.023; UROBILINOGEN,URINE NEGATIVE mg/dL (<2.0)
[2019-08-08 11:33] LABS: ANION GAP 11 (5-19); BLOOD UREA NITROGEN 17 mg/dL (7-20); CARBON DIOXIDE 33 mmol/L (22-30); CHLORIDE 96 mmol/L (98-107); GLUCOSE 120 mg/dL (75-110); POTASSIUM 3.2 mmol/L (3.6-5.0)
== END ==
LOC: OD 10:16
PROVIDERS: ATTEND Internal Medicine Nephrology
DX: N18.2 Chronic kidney disease, stage 2 (mild) (principal)
CPT/HCPCS: 36415; 80048; 81001; 85025

== ENCOUNTER → 2019-12-04 | Outpatient (CLI) | payer OTHER ==
[2019-12-04 11:47] LABS: ABSOLUTE EOSINOPHILS # (AUTO) 0.2 10^3/uL (0.0-0.6); ABSOLUTE LYMPHOCYTES (AUTO) 2.3 10^3/uL (0.5-4.7); ABSOLUTE MONOCYTES (AUTO) 0.4 10^3/uL (0.1-1.4); ABSOLUTE NEUT (AUTO) 2.3 10^3/uL (1.7-8.2); BASOPHILS % (AUTO) 0.7 % (0-2); EOSINOPHILS % (AUTO) 3.7 % (0-6); HEMATOCRIT 39.7 % (36.0-47.0); HEMOGLOBIN 13.5 g/dL (12.0-15.5); LYMPHOCYTES % (AUTO) 44.6 % (13-45); MEAN CORPUSCULAR HEMOGLOBIN 33.7 pg (27.0-33.4); MEAN CORPUSCULAR VOLUME 99 fl (80-97); MONOCYTES % (AUTO) 8.2 % (3-13); PLATELET COUNT 210 10^3/uL (150-450); RED BLOOD COUNT 4.01 10^6/uL (3.72-5.28); RED CELL DISTRIBUTION WIDTH 14.9 % (11.5-14.0); SEGMENTED NEUTROPHILS % (AUTO) 42.8 % (42-78); TOTAL CELLS COUNTED % (AUTO) 100 %; WHITE BLOOD COUNT 5.3 10^3/uL (4.0-10.5)
[2019-12-04 12:02] LABS: APPEARANCE,URINE SLIGHTLY-CLOUDY; BILIRUBIN,URINE NEGATIVE (NEGATIVE); COLOR,URINE YELLOW; GLUCOSE, URINE NEGATIVE (NEGATIVE); KETONES,URINE NEGATIVE (NEGATIVE); LEUKOCYTE ESTERASE,URINE NEGATIVE (NEGATIVE); NITRITE,URINE NEGATIVE (NEGATIVE); PROTEIN,URINE NEGATIVE (NEGATIVE); UROBILINOGEN,URINE NEGATIVE mg/dL (<2.0)
[2019-12-04 12:11] LABS: ALBUMIN 4.4 g/dL (3.5-5.0); ANION GAP 10 (5-19); BLOOD UREA NITROGEN 13 mg/dL (7-20); CALCIUM 9.7 mg/dL (8.4-10.2); CARBON DIOXIDE 32 mmol/L (22-30); CHLORIDE 98 mmol/L (98-107); GLUCOSE 98 mg/dL (75-110); PHOSPHORUS 3.7 mg/dL (2.5-4.5); POTASSIUM 3.9 mmol/L (3.6-5.0)
[2019-12-05 11:37] LABS: CREATININE URINE 119.7 mg/dL (Not Estab.)
== END ==
LOC: OD 11:04
PROVIDERS: ATTEND Internal Medicine Nephrology
DX: N18.3 Chronic kidney disease, stage 3 (moderate) (principal); E87.1 Hypo-osmolality and hyponatremia
CPT/HCPCS: 36415; 80069; 81001; 82043; 82306; 82570; 83036; 83970; 85025

== ENCOUNTER 2020-05-18 16:27 | Emergency (ER) | payer OTHER ==
--- NOTE | 2020-05-18 16:53 | ER Document Report ---
ED Medical Screen (RME) - General Stated Complaint: SYNCOPE Time Seen by Provider: 05/18/20 16:36 Primary Care Provider: YAHIR GARCIA MD [Primary Care Provider] - Follow up as needed TRAVEL OUTSIDE OF THE [place] IN LAST 30 DAYS: No - HPI Notes: 05/18/20 16:53 65-year-old female with a history of hyperlipidemia with a CVA May 2019 and hypertension presents to the emergency room from her PCP for concerns of possible stroke after she states she had a syncopal event yesterday. Patient did tell the front though that she had a syncopal event today. Patient reports she started not feeling well today. Was consulted to come out to see patient for stroke-like symptoms. Patient was not able to give much of a history, she did appear to be confused I have greeted and performed a rapid initial assessment of this patient. A comprehensive ED assessment and evaluation of the patient, analysis of test results and completion of the medical decision making process will be conducted by additional ED providers. PHYSICAL EXAMINATION: GENERAL: Well-appearing, well-nourished and in mild distress. HEAD: Atraumatic, normocephalic. EYES: Pupils equal round extraocular movements intact, conjunctiva are normal. NECK: Normal range of motion CV: s1, s2 regular LUNGS: No respiratory distress Musculoskeletal: Normal range of motion NEUROLOGICAL: Noted ataxia on right and left, scant left-sided facial droop, tongue deviation to the left, able to follow basic commands. Speech clear, oriented to place person and time but was confused with questions. 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 No drift noted bilaterally. SKIN: Warm, Dry, normal turgor, no rashes or lesions noted. - Related Data Allergies/Adverse Reactions: seasonal Allergy (Uncoded 06/03/19 09:40) Past Medical History - Past Medical History Cardiac Medical History: Reports: Hx Hypercholesterolemia, Hx Hypertension Denies: Hx Heart Attack Pulmonary Medical History: Denies: Hx Asthma Neurological Medical History: Denies: Hx Cerebrovascular Accident, Hx Seizures Renal/ Medical History: Denies: Hx Peritoneal Dialysis GI Medical History: Denies: Hx Hepatitis, Hx Hiatal Hernia, Hx Ulcer Infectious Medical History: Denies: Hx Hepatitis Past Surgical History: Reports: Hx Cardiac Catheterization, Hx Section. Denies: Hx Mastectomy, Hx Open Heart Surgery - stents X1 2013, Hx Pacemaker - Immunizations Hx Diphtheria, Pertussis, Tetanus Vaccination: No Doctor's Discharge - Discharge Referrals: YAHIR GARCIA MD [Primary Care Provider] - Follow up as needed
--- NOTE | 2020-05-18 16:59 | RADIOLOGY REPORT (SQ) ---
EXAM DESCRIPTION: CHEST SINGLE VIEW IMAGES COMPLETED DATE/TIME: 05/18/2020 4:49 pm REASON FOR STUDY: AMS COMPARISON: 06/03/2019 EXAM PARAMETERS: NUMBER OF VIEWS: One view. TECHNIQUE: Single frontal radiographic view of the chest acquired. RADIATION DOSE: NA LIMITATIONS: None. FINDINGS: LUNGS AND PLEURA: No opacities, masses or pneumothorax. No pleural effusion. MEDIASTINUM AND HILAR STRUCTURES: No masses. Contour normal. HEART AND VASCULAR STRUCTURES: Cardiomegaly, stable finding. Normal vasculature. BONES: No acute findings. HARDWARE: None in the chest. OTHER: No other significant finding. IMPRESSION: 1. No significant interval changes since the prior study dated 06/03/2019. No acute fin dings. 2. Cardiomegaly, unchanged finding. TECHNICAL DOCUMENTATION: JOB ID: [id number] 2010 [employer]- All Rights Reserved Reading location - IP/workstation name: [email or web address]
--- NOTE | 2020-05-18 17:04 | RADIOLOGY REPORT (SQ) ---
EXAM DESCRIPTION: CT HEAD WITHOUT IMAGES COMPLETED DATE/TIME: 05/18/2020 4:51 pm REASON FOR STUDY: AMS, possible stroke COMPARISON: 06/03/2019 TECHNIQUE: Axial images acquired through the brain without intravenous contrast. Images reviewed wi th bone, brain and subdural windows. Additional sagittal and coronal reconstructions were generated. Images stored on PACS. All CT scanners at this facility use dose modulation, iterative reconstruction, and/or weight based d osing when appropriate to reduce radiation dose to as low as reasonably achievable (ALARA). [facility]: Dose Right [facility]: CareDose [facility]: Dose Right [facility]: Teradose 4D [facility]: [employer] RADIATION DOSE: CT Rad equipment meets quality standard of care and radiation dose reduction techniq ues were employed. CTDIvol: 53.2 mGy. DLP: 964 mGy-cm. mGy. LIMITATIONS: None. FINDINGS: VENTRICLES: Normal size and contour. CEREBRUM: No masses. No hemorrhage. No midline shift. Old large right frontal/ parietal infarction . No evidence for acute infarction. Normal wilson/white matter differentiation. No areas of low densit y in the white matter. CEREBELLUM: No masses. No hemorrhage. No alteration of density. No evidence for acute infarction. EXTRAAXIAL SPACES: No fluid collections. No masses. ORBITS AND GLOBE: No intra- or extraconal masses. Normal contour of globe without masses. CALVARIUM: No fracture. PARANASAL SINUSES: No fluid or mucosal thickening. SOFT TISSUES: No mass or hematoma. OTHER: No other significant finding. IMPRESSION: Old right side MCA infarction with no acute intracranial imaging findings. EVIDENCE OF ACUTE STROKE: NO. COMMENT: Quality ID # [id number]: Final reports with documentation of one or more dose reduction techniques (e.g., Automated exposure control, adjustment of the mA and/or kV according to patient size, use of iterative reconstruction technique) TECHNICAL DOCUMENTATION: JOB ID: [id number] 2010 [employer]- All Rights Reserved Reading location - IP/workstation name: [email or web address]
[2020-05-18 17:37] LABS: ABSOLUTE EOSINOPHILS # (AUTO) 0.3 10^3/uL (0.0-0.6); ABSOLUTE LYMPHOCYTES (AUTO) 2.3 10^3/uL (0.5-4.7); ABSOLUTE MONOCYTES (AUTO) 0.7 10^3/uL (0.1-1.4); ABSOLUTE NEUT (AUTO) 3.1 10^3/uL (1.7-8.2); BASOPHILS % (AUTO) 0.5 % (0-2); EOSINOPHILS % (AUTO) 4.1 % (0-6); HEMATOCRIT 45.7 % (36.0-47.0); HEMOGLOBIN 15.4 g/dL (12.0-15.5); LYMPHOCYTES % (AUTO) 36.5 % (13-45); MEAN CORPUSCULAR HEMOGLOBIN 33.8 pg (27.0-33.4); MEAN CORPUSCULAR HGB CONC 33.7 g/dL (32.0-36.0); MEAN CORPUSCULAR VOLUME 101 fl (80-97); MONOCYTES % (AUTO) 10.7 % (3-13); PLATELET COUNT 216 10^3/uL (150-450); RED BLOOD COUNT 4.55 10^6/uL (3.72-5.28); RED CELL DISTRIBUTION WIDTH 13.8 % (11.5-14.0); SEGMENTED NEUTROPHILS % (AUTO) 48.2 % (42-78); TOTAL CELLS COUNTED % (AUTO) 100 %; WHITE BLOOD COUNT 6.4 10^3/uL (4.0-10.5)
[2020-05-18 17:46] LABS: PROTHROMBIN TIME 12.2 SEC (11.4-15.4)
[2020-05-18 17:47] LABS: PARTIAL THROMBOPLASTIN TIME 27.1 SEC (23.5-35.8)
--- NOTE | 2020-05-18 17:47 | ER Document Report ---
ED Neuro Symptoms/Deficit - General Chief Complaint: S/S of Possible Stroke Stated Complaint: SYNCOPE Time Seen by Provider: 05/18/20 16:36 Primary Care Provider: YAHIR GARCIA MD [ACTIVE STAFF] - Follow up as needed Notes: 65-year-old female with a history of a stroke on June 03, 2019 that left her with left-sided deficits and some difficulty with speech presents the emergency department stating that yesterday at work she was standing when she had a loss of consciousness for less than 1 minute. At the time she was diaphoretic, the fire department arrived and checked her out and stated that she was okay. Today she spoke with her primary care provider nurse practitioner Luis Currie who told her to come to the emergency department because she was worried she may be having another stroke. Patient states that after the fall yesterday she developed some new difficulty walking and standing. States that her right leg feels very heavy and she has pain in her right knee. States that her difficulty walking is usually weakness on her left hand side and some slightly slurred speech. Patient states the symptoms worsened around 1630 yesterday evening. Stroke 1 year ago was an acute ischemic stroke. Stroke 1 year ago was an acute ischemic stroke. TRAVEL OUTSIDE OF THE [place] IN LAST 30 DAYS: No - Related Data Allergies/Adverse Reactions: seasonal Allergy (Uncoded 06/03/19 09:40) Past Medical History - General Information source: Patient - Social History Smoking Status: Never Smoker Frequency of alcohol use: None Drug Abuse: None Family History: Reviewed & Not Pertinent - Past Medical History Cardiac Medical History: Reports: Hx Hypercholesterolemia, Hx Hypertension Denies: Hx Heart Attack Pulmonary Medical History: Denies: Hx Asthma Neurological Medical History: Denies: Hx Cerebrovascular Accident, Hx Seizures Renal/ Medical History: Denies: Hx Peritoneal Dialysis GI Medical History: Denies: Hx Hepatitis, Hx Hiatal Hernia, Hx Ulcer Infectious Medical History: Denies: Hx Hepatitis Past Surgical History: Reports: Hx Cardiac Catheterization, Hx Section. Denies: Hx Mastectomy, Hx Open Heart Surgery - stents X1 2014, Hx Pacemaker - Immunizations Hx Diphtheria, Pertussis, Tetanus Vaccination: No Review of Systems - Review of Systems Constitutional: No symptoms reported Cardiovascular: See HPI, Syncope Respiratory: No symptoms reported Musculoskeletal: See HPI Neurological/Psychological: See HPI -: Yes All other systems reviewed and negative Physical Exam - Notes Notes: GENERAL: Alert, interacts well. No acute distress. HEAD: Normocephalic, atraumatic EYES: Pupils equal, round and reactive to light, extraocular movements intact. ENT: Oral mucosa moist, tongue midline. NECK: Full range of motion, supple, trachea midline. LUNGS: Clear to auscultation bilaterally, no wheezes, rales or rhonchi, no respiratory distress. HEART: Regular rate and rhythm, no murmurs, gallops, rubs. ABDOMEN: Soft, nontender, nondistended, bowel sounds present in all 4 quadrants. EXTREMITIES: Moves all 4 extremities spontaneously, right leg is very slightly weaker than the left weak on confrontational testing, 4 out of 5 strength in the right leg, no edema, radial and dorsalis pedis pulses 2/4 bilaterally. No cyanosis. NEUROLOGICAL: Alert and oriented x3, normally slurred speech, decreased differentiation between sharp and dull on the left forearm, cranial nerves II through XII grossly intact, biceps and patellar DTRs 2+ bilaterally. PSYCH: Normal mood, normal affect. SKIN: Warm, Dry, normal turgor. Course - Re-evaluation Re-evalutation: 05/18/20 17:54 Patient is not a candidate for TPA, last known well was 11 AM yesterday. 05/18/20 17:55 Cannot actually reproduce significant symptoms that were not there previously. She has no drift with her right leg, only has drift with the left leg and that is a baseline problem. 05/18/20 20:[address] 05/18/20 16:36 IMPRESSION: Old right side MCA infarction with no acute intracranial imaging findings. EVIDENCE OF ACUTE STROKE: NO. Chest X-Ray 05/18/20 16:38 IMPRESSION: 1. No significant interval changes since the prior study dated 06/03/2019. No acute findings. 2. Cardiomegaly, unchanged finding. Head CTA 05/18/20 17:30 IMPRESSION: NO CTA EVIDENCE OF STENOSIS OR ANEURYSM OF THE [place]. Neck CTA 05/18/20 17:30 IMPRESSION: The right ICA stent appears to be patent. All the vessels of the neck are patent. Knee X-Ray 05/18/20 17:31 IMPRESSION: Degenerative joint disease. No acute finding. Head MRI 05/18/20 17:32 IMPRESSION: No acute intracranial hemorrhage, mass, or evidence of acute infarct. Remote right MCA distribution infarct. Superimposed mild chronic microvascular ischemic change and generalized atrophy. copyright 2010 [employer]- All Rights Reserved 05/18/20 20:41 All of the symptoms appear to be old rather than needed, all of new symptoms have completely resolved. Patient was able to stand and walk to the restroom unassisted without any difficulty. It appears that patient may have had a TIA that has since resolved. Patient has already had stenting of her right internal carotid artery, no new narrowings have been identified, she is already taking Plavix which is appropriate antiplatelet therapy and she is already seeing a primary care physician who is continuing other risk factor reduction with her including antihypertensives and antihyperlipidemics. Patient will be discharged to home, requested to continue to follow-up with her primary care provider nurse practitioner Cindy Currie. 05/18/20 20:43 Given the fact that she is already followed as an outpatient, has already had a right internal carotid artery stented, already has risk factor reduction performed I do not see any benefit to hospitalizing her for further work-up. - Laboratory Result Diagrams: 05/18/20 17:09 05/18/20 17:09 - EKG Interpretation by Me Additional EKG results interpreted by me: 05/18/20 20:42 EKG shows sinus rhythm at a rate of 60, first-degree AV block with [place] interval of 236, normal axis, no ST segment elevations or depressions, there are T wave inversions noted in V2, lead III per my interpretation. ED Alteplase Inc/Exc Criteria - Date/Time patient last known well: Date/Time: 05/17/2020 11:00 - Date/Time patient arrived in ED: _: 05/18/2020 16:27 - Inclusion Criteria: 1: Patient presented to ED within 3 hours of acute ischemic stroke symptom onset? -: No 2: Did baseline CT exclude intracranial hemorrhage and/or other risk factors? -: Yes 3: Is the age of the patient 18 years of age or greater? -: Yes : If any of the above questions are answered "NO" then stop, patient is not a candidate for Alteplase, : If all of the above questions are answered "YES" then continue with Exclusion Criteria. - Exclusion Criteria: 1: Is there evidence of intracranial hemorrhage on baseline CT? -: No 2: Is there suspicion of subarachnoid hemorrhage (even if CT negative)? -: No 3: Is there a history of serious head trauma, recent previous stroke or CT within 3 months? -: No 4: Does the patient have a clinical presentation consistent with CT or post-CT pericarditis? -: No 5: Is there history of intracranial hemorrhage? -: No 6: On repeated measurement is Systolic BP greater than 185mmHg or Diastolic BP greater that 110 mmHg and is aggressive treatment needed to reduce blood pressure to these limits (e.g. constant infusion of an anti-hypertensive)? -: No 7: Did the patient awake with stroke symptoms? -: No 8: Has the patient had a lumbar puncture or an arterial puncture at a non- compressile site within 7 days? -: No 9: With in the last 14 days did the patient have surgery or major trauma? -: No 10: Is the patient or less than 2 weeks? -: No 11: Was there any active bleeding or acute trauma? -: No 12: Does the patient have intracranial neoplasm, arteriovenous malformation or aneurysm? -: No 13: Does the patient have abnormal glucose (less than 50 or greater than 400mg/dl)? Record glucose in Comment. -: No 14: Patient has rapidly improving symptoms at the time Alteplase is to be Administered. -: Yes 15: Does the patient have any risks for bleeding, including but not limited to: a.: Current use of Coumadin with PT greater than 15 seconds or INR greater than 1.7. b.: Current use of Pradaxa (Dabigatran). c.: Heparin administereed within the past 48 hours and PTT elevated. d.: Platelet count less than 100,000/mm. e.: Major surgery or serious trauma within 14 days. f.: Gastrointestinal or gynecological urinary bleeding within 14 days. g.: Myocardial Infarction (CT) within 3 months. -: No : If the answer to any of the above questions is "YES" then stop, the patient is not a candidate for Alteplase. : If the answer to all of the above questions is "NO" then the patient may be eligible for the Administration of Alteplase. : If the patient is noted to have seizure activity at onset of Stroke symptoms; Consult Neurologist for further evaluation. - The patient is: -: Included and is eligible to receive Alteplase. *Initiate bed placement at higher level of care* Reviewed risks & benefits of thrombolytic therapy: I have reviewed the risks and benefits of thrombolytic therapy with the patient and/or his/her family. -: Excluded and not eligible to receive Alteplase for the above exclusions. --: Yes - greater than 24 hours from symptom onset -: Excluded and not eligible to receive Alteplase for other reasons (specify in comments): - Diagnosis of TIA: -: Patient presented with transient symptoms that are now resolved and no other neurologic findings are currently present. List symptoms in comments. -: Patient is NOT a candidate for tPA. -: ____(put name in comment) has been consulted for admission and continued evaluation of risk factor assessment. ED NIH Stroke Scale - NIH Stroke Scale When completed:: Before Alteplase *: 1. NIH scale should be completed with appropriate accompanying assessment tools. *: 2. The NIH should reflect what the patient is capable of doing and should not be coached by the clinician. 1a. Level of Consciousness: 0=Alert;keenly responsive -: 1=Drowsy -: 2=Obtunded -: 3=Coma/unresponsive or reflex to noxious stimuli. 1a. Responses: 0 1b. Orientation Questions: a. What month is it? -: b. How old are you? -: 0=Answers both questions correctly. -: 1=Answers one question correctly or patient is intubated or has orotracheal trauma. -: 2=Answers neither question correctly. 1b. Responses: 0 1c. Response to commands: a. Open and close eyes? -: b. Assistant Financial Accountant and release hand? -: Credit is given despite weakness. Demonstration of task is permitted. Substitute command if hands cannot be used. -: 0=Performs both tasks correctly -: 1=Performs one task correctly -: 2=Performs neither task correctly 1c. Responses: 0 2. Gaze: Establish eye contact and instruct patient to "Follow my finger" -: 0=Normal -: 1=Partial gaze palsy. Gaze is abnormal in one or both eyes, but where forced deviation or total gaze paresis is not present. -: 2=Forced deviation or total gaze paresis. 2. Responses: 0 3. Visual [place]: Sees fingers in all four quadrants. -: 0=No visual loss. -: 1=Partial hemianopsia. -: 2=Complete hemianopsia. -: 3=Bilateral hemianopsia (including Cortical blindness) 3. Responses: 0 4. Facial Movement: Instruct patient to: -: a. Show me your teeth -: b. Raise your eyebrows -: c. Close your eyes -: d. Smile -: 0=Normal symmetrical movement -: 1=Minor paralysis (flattened nasolabial fold, asymmetry on smiling). -: 2=Partial paralysis (total or near total paralysis of lower face). -: 3=Complete paralysis of upper and lower face 4. Responses: 0 5. Motor functions (left arm): Alternate sides and extend each arm with palms down (90 degrees if sitting or 45 degrees for supine). -: 0=No drift;limb holds for full 10 seconds. -: 1=Drift; limb holds but drifts down before full 10 seconds, but does not hit bed. -: 2=Some effort against gravity; limb cannot get to or maintain position. -: 3=No effort against gravity; limb falls. -: 4=No movement. -: UN=Amputation, joint fusion, explain in comments. 5. Responses (left arm): 0 5. Motor Functions (right arm): Alternate sides and extend each arm with palms down (90 degrees if sitting or 45 degrees for supine). -: 0=No drift;limb holds for full 10 seconds. -: 1=Drift; limb holds but drifts down before full 10 seconds, but does not hit bed. -: 2=Some effort against gravity; limb cannot get to or maintain position. -: 3=No effort against gravity; limb falls. -: 4=No movement. -: UN=Amputation, joint fusion, explain in comments. 5. Responses (right arm): 0 6. Motor Functions (left leg): With patient lying supine, alternate sides and extend each leg (30 degrees always while supine). -: 0=No drift, leg holds position for full 5 seconds -: 1=Drift; leg falls before full 5 seconds but does not hit bed. -: 2=Some effort against gravity, leg falls to bed but some effort against gravity. -: 3=No effort against gravity, leg falls to bed immediately. -: 4=No movement. -: UN=Amputation, joint fusion; explain in comments. 6. Responses (left leg): 0 6. Motor Functions (right leg): With patient lying supine, alternate sides and e xtend each leg (30 degrees always while supine). -: 0=No drift, leg holds position for full 5 seconds -: 1=Drift; leg falls before full 5 seconds but does not hit bed. -: 2=Some effort against gravity, leg falls to bed but some effort against gravity. -: 3=No effort against gravity, leg falls to bed immediately. -: 4=No movement. -: UN=Amputation, joint fusion; explain in comments. 6. Responses (right leg): 0 7. Limb Ataxia: With eyes open instruct patient to: -: a. "Touch your finger to your nose". -: b. "Touch your heel to your rivas" -: 0=Absent -: 1=Present in one limb. -: 2=Present in two limbs. -: UN=Amputation or joint fusion; explain in comments. 7. Responses: 0 8. Sensory: Test sensation using pinprick or noxious stimuli. Test as many body parts as possible. -: 0=Normal;no sensory loss -: 1=Mile to moderate sensory loss (patient feels pin prick but is less sharp on affected side). -: 2=Severe or total sensory loss. 8. Responses: 1 - left arm 9. Best Language: Instruct patient to: -: a. "Describe what you see in this picture." -: b. "Name the items in this picture." -: c. "Read these sentences." -: 0=No aphasia, normal -: 1=Mild to moderate aphasia. -: 2=Severe aphasia -: 3=Mute, global aphasia, no usable speech or auditory comprehension. 9. Responses: 0 10. Articulation, Dysarthia: Instruct patient to: -: "Read these words" or "Repeat these words" -: 0=Normal -: 1=Mild to moderate; patient may slur some words but can be understood without difficulty. -: 2=Severe; patients speech so slurred as to be unintelligible in the absence of dysphasia. -: UN=Intubated or other physical barrier, explain in comments. 10. Responses: 1 11. Extinction or inattention: 0=No abnormality -: 1= Visual, tactile, auditory, spatial, or personal inattention or extinction to bilateral simulation in one or the sensory modalities. -: 2=Profound lauren-inattention or lauren-inattention to more than one modality; does not recognize own hand. 11. Responses: 0 Total Score: 2 Discharge - Discharge Clinical Impression: TIA (transient ischemic attack) Syncope Qualifiers: Syncope type: unspecified Qualified Code(s): R55 - Syncope and collapse Condition: Stable Disposition: HOME, SELF-CARE Additional Instructions: You appear to have had a TIA. This is also known as a mini stroke or transient ischemic attack. All of your new stroke symptoms have since resolved. The stent in your neck is patent and doing well. You need to continue taking your blood pressure and cholesterol medications as well as your clopidogrel (Plavix). These will help to reduce your risk of having another TIA or stroke. Please call your nurse practitioner Luis Currie as soon as possible to arrange a follow-up appointment. There is no benefit to being hospitalized this evening as your risk factors are already being appropriately addressed and reduced as an outpatient. If you pass out again, develop any chest pain, feel like you are going to pass out or develop any new weakness please return to the emergency department immediately. Referrals: YAHIR GARCIA MD [ACTIVE STAFF] - Follow up as needed LUIS CURRIE AGNP [NO LOCAL MD] - Follow up as needed
[2020-05-18 18:01] LABS: ALBUMIN 4.5 g/dL (3.5-5.0); ALKALINE PHOSPHATASE 71 U/L (38-126); ANION GAP 10 (5-19); ASPARTATE AMINO TRANSFERASE 28 U/L (14-36); BILIRUBIN,TOTAL 1.1 mg/dL (0.2-1.3); BLOOD UREA NITROGEN 18 mg/dL (7-20); CALCIUM 10.7 mg/dL (8.4-10.2); CARBON DIOXIDE 32 mmol/L (22-30); CHLORIDE 98 mmol/L (98-107); GLUCOSE 98 mg/dL (75-110); POTASSIUM 3.7 mmol/L (3.6-5.0); TOTAL PROTEIN 7.7 g/dL (6.3-8.2)
--- NOTE | 2020-05-18 18:34 | RADIOLOGY REPORT (SQ) ---
EXAM DESCRIPTION: KNEE RIGHT 3 VIEWS IMAGES COMPLETED DATE/TIME: 05/18/2020 6:22 pm REASON FOR STUDY: fall yest w/knee pain COMPARISON: None. NUMBER OF VIEWS: Three views. TECHNIQUE: AP, lateral, and sunrise patella radiographic images acquired of the right knee. LIMITATIONS: None. FINDINGS: MINERALIZATION: Normal. BONES: No acute fracture or dislocation. No worrisome bone lesions. JOINT: There is narrowing of the medial compartment with marginal osteophytes. There is a small post erosuperior patellar osteophyte. SOFT TISSUES: No soft tissue swelling. No radio-opaque foreign body. OTHER: No other significant finding. IMPRESSION: Degenerative joint disease. No acute finding. TECHNICAL DOCUMENTATION: JOB ID: [id number] 2010 [employer]- All Rights Reserved Reading location - IP/workstation name: [email or web address]
[2020-05-18 18:44] LABS: APPEARANCE,URINE CLEAR; BILIRUBIN,URINE NEGATIVE (NEGATIVE); COLOR,URINE STRAW; GLUCOSE, URINE NEGATIVE (NEGATIVE); KETONES,URINE NEGATIVE (NEGATIVE); LEUKOCYTE ESTERASE,URINE NEGATIVE (NEGATIVE); NITRITE,URINE NEGATIVE (NEGATIVE); PROTEIN,URINE NEGATIVE (NEGATIVE); URINE SPECIFIC GRAVITY 1.004; UROBILINOGEN,URINE NEGATIVE mg/dL (<2.0)
--- NOTE | 2020-05-18 19:33 | RADIOLOGY REPORT (SQ) ---
EXAM DESCRIPTION: CTA NECK IMAGES COMPLETED DATE/TIME: 05/18/2020 7:10 pm REASON FOR STUDY: stroke, look for LVO COMPARISON: None. TECHNIQUE: Axial dynamic scanning technique with dynamic contrast enhancement through the extra-wallpaper scraper nial carotid and vertebral arteries. Multiplanar reconstruction. 3-D MIPS and Volume-rendered imag es acquired at the workstation and saved to PACS. Images are reviewed in soft tissue, bone, lung w indows. All CT scanners at this facility use dose modulation, iterative reconstruction, and/or weight based d osing when appropriate to reduce radiation dose to as low as reasonably achievable (ALARA). [facility]: Dose Right [facility]: CareDose [facility]: Dose Right [facility]: Teradose 4D [facility]: [employer] CONTRAST TYPE AND DOSE: 70 mL Omnipaque 350- low osmolar. RENAL FUNCTION: BUN 18 creatinine 1.28 LIMITATIONS: None. FINDINGS: AORTIC ARCH: Normal three-vessel origin. Bilateral subclavian arteries are patent. No d issection. RIGHT CAROTIDS: Right ICA stent is patent. Common external carotid arteries are unremarkable. RIGHT VERTEBRAL: Patent. No dissection. LEFT CAROTIDS: Patent common, internal and external carotid arteries without suggestion of significan t stenosis or irregular plaque. No dissection. LEFT VERTEBRAL: Patent. No dissection. OTHER: No other significant finding. OTHER: 3-D reconstructions confirm findings. IMPRESSION: The right ICA stent appears to be patent. All the vessels of the neck are patent. COMMENT: Quality ID #[id number]: Measurements of distal internal carotid diameter were used as the denomina tor for stenosis measurement. TECHNICAL DOCUMENTATION: JOB ID: [id number] Quality ID # [id number]: Final reports with documentation of one or more dose reduction techniques (e.g., Au tomated exposure control, adjustment of the mA and/or kV according to patient size, use of iterative reconstruction technique) 2010 [employer]- All Rights Reserved Reading location - IP/workstation name: [email or web address]
--- NOTE | 2020-05-18 19:37 | RADIOLOGY REPORT (SQ) ---
EXAM DESCRIPTION: CTA HEAD IMAGES COMPLETED DATE/TIME: 05/18/2020 7:10 pm REASON FOR STUDY: stroke, look for LVO COMPARISON: None. TECHNIQUE: Post IV contrast scanning, thin section axial imaging through the brain to evaluate the a rterial structures. Source and MIP images are saved and reviewed on PACS. Advanced 3D imaging as volume-rendering, MIPs, SSD performed? No All CT scanners at this facility use dose modulation, iterative reconstruction, and/or weight based d osing when appropriate to reduce radiation dose to as low as reasonably achievable (ALARA). [facility]: Dose Right [facility]: CareDose [facility]: Dose Right [facility]: Teradose 4D [facility]: [employer] CONTRAST TYPE AND DOSE: contrast/concentration: Isovue 350.00 mmol/ml; Total Contrast Delivered: 70. 0 ml; Total Saline Delivered: 52.9 ml RENAL FUNCTION: BUN 18 creatinine 1.28 LIMITATIONS: None. FINDINGS: [place]: The anterior, middle, posterior cerebral arteries are all patent. No ev idence of aneurysm or focal stenosis. POSTERIOR CIRCULATION: The distal vertebral arteries are patent as is the basilar artery. No aneurysm . BRAIN: No gross enhancing lesions seen. There is a large old right infarct. BONES: Intact as visualized. SINUSES: No fluid or mucosal thickening. OTHER: No other significant finding. IMPRESSION: NO CTA EVIDENCE OF STENOSIS OR ANEURYSM OF THE [place]. TECHNICAL DOCUMENTATION: JOB ID: [id number] Quality ID # [id number]: Final reports with documentation of one or more dose reduction techniques (e.g., Au tomated exposure control, adjustment of the mA and/or kV according to patient size, use of iterative reconstruction technique) 2010 [employer]- All Rights Reserved Reading location - IP/workstation name: [email or web address]
--- NOTE | 2020-05-18 20:27 | RADIOLOGY REPORT (SQ) ---
EXAM DESCRIPTION: MR BRAIN WITHOUT IV CONTRAST COMPLETED DATE/TME: 05/18/2020 17:32 CLINICAL HISTORY: 65 years, Female, new right sided stroke symptoms COMPARISON: Prior CT head from earlier the same day TECHNIQUE: Multiplanar, multisequence MR images of the brain were obtained without the use of intravenous contrast. Images stored on PACS. LIMITATIONS: None. FINDINGS: Graphic Editor images show no suspicious finding. Assessment of the midline structures reveals a partially empty sella. Diffusion weighted images reveal no foci of diffusion restriction. Evaluation of the brain parenchyma reveals a zone of encephalomalacia about the right frontal/parietal lobes with associated adjacent hyperintense T2/FLAIR signal indicative of gliosis. Superimposed mild periventricular and patchy subcortical white matter signal alteration is also noted. The ventricles and sulcal spaces are mildly enlarged. No extra-axial fluid is seen. Intracranial arterial and venous flow voids appear normal. Globes and orbits show no suspicious abnormality. Paranasal sinuses and mastoid air cells are clear. Susceptibility weighted images reveal foci of susceptibility artifact about the zone of encephalomalacia about the right frontal/parietal regions, indicating chronic hemosiderin staining. No suspicious foci of susceptibility are identified. IMPRESSION: No acute intracranial hemorrhage, mass, or evidence of acute infarct. Remote right MCA distribution infarct. Superimposed mild chronic microvascular ischemic change and generalized atrophy. copyright 2011 [employer]- All Rights Reserved
[2020-05-18 21:19] VITALS: BP 148/79
--- NOTE | 2020-05-19 08:36 | EKG REPORT ---
SEVERITY:- ABNORMAL ECG - SINUS RHYTHM FIRST DEGREE AV BLOCK : Confirmed by: Nhi Grider MD 19-May-2020 08:36:07
== END 2020-05-18 21:37 | disposition home or self-care (01) ==
LOC: ER 16:27
DX: G45.9 Transient cerebral ischemic attack, unspecified (principal); R55 Syncope and collapse; R61 Generalized hyperhidrosis; R26.2 Difficulty in walking, not elsewhere classified; M25.561 Pain in right knee; M62.81 Muscle weakness (generalized); R47.81 Slurred speech; R29.702 NIHSS score 2; I10 Essential (primary) hypertension; Z86.73 Personal history of transient ischemic attack (TIA), and cerebral infarction without residual deficits
CPT/HCPCS: 36415; 70450; 70496; 70498; 70551; 71045; 80053; 81001; 85025; 85610; 85730; 93005; 93010; 99284

== ENCOUNTER 2020-11-03 10:20 | Emergency (ER) | payer OTHER ==
[2020-11-03 11:41] LABS: ABSOLUTE LYMPHOCYTES (AUTO) 0.6 10^3/uL (0.5-4.7); ABSOLUTE MONOCYTES (AUTO) 0.4 10^3/uL (0.1-1.4); ABSOLUTE NEUT (AUTO) 4.8 10^3/uL (1.7-8.2); BASOPHILS % (AUTO) 0.7 % (0-2); HEMATOCRIT 28.7 % (36.0-47.0); HEMOGLOBIN 9.1 g/dL (12.0-15.5); LYMPHOCYTES % (AUTO) 10.1 % (13-45); MEAN CORPUSCULAR HEMOGLOBIN 25.8 pg (27.0-33.4); MEAN CORPUSCULAR HGB CONC 31.8 g/dL (32.0-36.0); MEAN CORPUSCULAR VOLUME 81 fl (80-97); MONOCYTES % (AUTO) 6.2 % (3-13); PLATELET COUNT 255 10^3/uL (150-450); RED BLOOD COUNT 3.54 10^6/uL (3.72-5.28); TOTAL CELLS COUNTED % (AUTO) 100 %; WHITE BLOOD COUNT 5.8 10^3/uL (4.0-10.5)
--- NOTE | 2020-11-03 11:43 | RADIOLOGY REPORT (SQ) ---
EXAM DESCRIPTION: CHEST SINGLE VIEW IMAGES COMPLETED DATE/TIME: 11/03/2020 11:17 am REASON FOR STUDY: difficulty breathing COMPARISON: 05/18/2020 NUMBER OF VIEWS: One view. TECHNIQUE: Single frontal radiographic view of the chest acquired. LIMITATIONS: None. FINDINGS: LUNGS AND PLEURA: No opacities, masses or pneumothorax. No pleural effusion. MEDIASTINUM AND HILAR STRUCTURES: No masses or contour abnormality. HEART AND VASCULATURE: Cardiac enlargement. Vascular congestion. BONES: No acute findings. HARDWARE: None in the chest. OTHER: No other significant finding. IMPRESSION: CARDIAC ENLARGEMENT. VASCULAR CONGESTION. TECHNICAL DOCUMENTATION: JOB ID: [id number] 2010 [employer]- All Rights Reserved Reading location - IP/workstation name: [email or web address]
[2020-11-03 12:03] LABS: ALKALINE PHOSPHATASE 44 U/L (38-126); ANION GAP 9 (5-19); ASPARTATE AMINO TRANSFERASE 60 U/L (14-36); BILIRUBIN,DIRECT 0.3 mg/dL (0.0-0.4); BILIRUBIN,TOTAL 0.8 mg/dL (0.2-1.3); BLOOD UREA NITROGEN 24 mg/dL (7-20); CALCIUM 9.3 mg/dL (8.4-10.2); CARBON DIOXIDE 28 mmol/L (22-30); CHLORIDE 103 mmol/L (98-107); GLUCOSE 152 mg/dL (75-110); POTASSIUM 4.1 mmol/L (3.6-5.0); TOTAL PROTEIN 7.3 g/dL (6.3-8.2)
[2020-11-03] MEDS ORDERED: ONDANSETRON HCL INJ/PF 4 MG/2 ML SDV IV ONE (13:38)
[2020-11-03] MEDS ORDERED: NORMAL SALINE 1000 ML 500 ML IV ONE (13:38)
--- NOTE | 2020-11-03 13:45 | ER Document Report ---
ED General - General Chief Complaint: General Weakness Stated Complaint: WEAKNESS,CHILLS,DIZZINESS Time Seen by Provider: 11/03/20 12:55 Primary Care Provider: FABIÁN MADISON MD [Primary Care Provider] - Follow up as needed Notes: Patient is a 65-year-old female presents emergency department with a chief complaint of nausea and not eating home. Patient had close contact with someone at 2 tested positive for COVID-19. Patient was brought in via EMS and they did a rapid swab, which was positive. Patient is a very poor historian, but is able to answer yes or no to you of systems. Denies any chest pain, shortness of breath, or difficulty breathing. States that she does have some diarrhea, but not vomiting. TRAVEL OUTSIDE OF THE [place] IN LAST 30 DAYS: No - Related Data Allergies/Adverse Reactions: seasonal Allergy (Uncoded 06/03/19 09:40) Home Medications: lasix. klorcon. gabapentin. metoprolol Past Medical History - Social History Smoking Status: Unknown if Ever Smoked Frequency of alcohol use: None Drug Abuse: None Family History: Reviewed & Not Pertinent - Past Medical History Cardiac Medical History: Reports: Hx Hypercholesterolemia, Hx Hypertension Denies: Hx Heart Attack Pulmonary Medical History: Denies: Hx Asthma Neurological Medical History: Denies: Hx Cerebrovascular Accident, Hx Seizures Renal/ Medical History: Denies: Hx Peritoneal Dialysis GI Medical History: Denies: Hx Hepatitis, Hx Hiatal Hernia, Hx Ulcer Infectious Medical History: Denies: Hx Hepatitis Past Surgical History: Reports: Hx Cardiac Catheterization, Hx Section. Denies: Hx Mastectomy, Hx Pacemaker. Comment Only: Hx Open Heart Surgery - stents X1 2013 - Immunizations Hx Diphtheria, Pertussis, Tetanus Vaccination: No Review of Systems - Review of Systems Notes: REVIEW OF SYSTEMS: CONSTITUTIONAL : Denies recent illness. Denies recent unintentional weight loss. Denies fever, chills, or sweats. EENT: Denies eye, ear, throat, or mouth pain, discharge, or symptoms. Denies nasal or sinus congestion. CARDIOVASCULAR: Denies chest pain. RESPIRATORY: Denies shortness of breath, cough, congestion, difficulty breathing, or wheezing. GASTROINTESTINAL: See HPI. GENITOURINARY: Denies difficulty urinating, burning, blood in urine, urgency or frequency. MUSCULOSKELETAL: Denies neck and back pain. Denies joint pain or swelling. SKIN: Denies rash, itchiness, or lesions HEMATOLOGIC : Denies easy bruising or bleeding. LYMPHATIC: Denies swollen, painful, enlarged glands. NEUROLOGICAL: Denies no numbness or tingling denies weakness. Denies headache. Denies altered mental status. Denies alteration in speech. PSYCHIATRIC: Denies stress, anxiety, alteration in sleep patterns, or depression. All other systems reviewed and negative. Physical Exam - Vital signs Vitals: BP 103/65 11/03/20 10:36 - Notes Notes: PHYSICAL EXAMINATION: GENERAL: Appears well, healthy, well-nourished, no acute distress. HEAD: Normocephalic, atraumatic. EYES: PERRL, conjunctiva normal, all extraocular movements intact, sclera nonicteric ENT: Moist mucous membranes. NECK: Supple, no noticeable swelling, redness, rash. Normal range of motion. LUNGS: Equal breath sounds bilaterally and clear to auscultation. No wheezes rales or rhonchi. CARDIOVASCULAR: S1-S2, regular rate, regular rhythm. Radial pulses 2+, normal. ABDOMEN: Normoactive bowel sounds. Soft, nontender, no guarding, no rebound tenderness, and no masses palpated. EXTREMITIES: Normal strength and range of motion, no pitting or edema. No cyanosis. NEUROLOGICAL: Moves all extremities upon command. Strength 5/5 in all extremities. PSYCH: Normal mood, normal affect. SKIN: Warm, dry. No rash, lesions, ulcerations noted. Normal skin turgor. Course - Re-evaluation Re-evalutation: 11/03/20 16:55 Hematology is unremarkable, other than a hemoglobin of 9.1, chemistries show creatinine of 7.821.82. This is only slightly elevated. I did give the patient 500 mL of fluid. Her chest x-ray shows vascular congestion. Patient states that she does feel a bit better after receiving her fluids and Zofran. Awaiting urinalysis. Encouraged patient to urinate. She is conversing with me better than when I initially saw her. 11/03/20 19:10 Patient was finally able to void. It has now been almost 9 hours since the patient has been here. She has a urinary tract infection, along with her Covid. This is most likely why she feels dizzy and weak. We will give her Rocephin. Follow-up precautions were given. Verbal discharge instructions were given to the patient. They verbalized understanding. They are stable for discharge. - Vital Signs Vital signs: Temp Pulse Resp BP Pulse Ox 100.8 F H 52 L 21 H 128/67 H 95 11/03/20 19:00 11/03/20 10:37 11/03/20 19:00 11/03/20 19:59 11/03/20 19:00 - Laboratory Results Result Diagrams: 11/03/20 11:30 11/03/20 11:30 Laboratory Results Interpreted: 11/03/20 11/03/20 11/03/20 11:30 11:30 18:12 RBC 3.54 L Hgb 9.1 L Hct 28.7 L MCH 25.8 L MCHC 31.8 L RDW 21.0 H Lymph % (Auto) 10.1 L Seg Neutrophils % 83.0 H BUN 24 H Creatinine 1.82 H Est GFR ( Amer) 34 L Est GFR (MDRD) Non-Af 28 L Glucose 152 H AST 60 H Urine Protein >=500 H Urine Blood MODERATE H Critical Laboratory Results Reviewed: No Critical Results - Radiology Results Critical Radiology Results Reviewed: No Critical Results Discharge - Discharge Clinical Impression: COVID-19 virus infection Urinary tract infection Qualifiers: Urinary tract infection type: acute cystitis Hematuria presence: with hematuria Qualified Code(s): N30.01 - Acute cystitis with hematuria Condition: Stable Disposition: HOME, SELF-CARE Instructions: Urinary Tract Infection ([facility]) Additional Instructions: Your urine shows findings consistent with a urinary tract infection. Please take all the antibiotics as directed even if your symptoms have improved. Please follow-up with your primary care physician as needed. [facility] develop fever >101F, persistent vomiting, become lethargic, have severe pain in your sides, or any other symptoms that are concerning to you. Prescriptions: Ciprofloxacin HCl [Cipro 500 mg Tablet] 500 mg PO BID #20 tablet Ondansetron [Zofran Odt 4 mg Tablet] 1 - 2 tab PO Q4H PRN #15 tab.rapdis PRN Reason: For Nausea/Vomiting Referrals: FABIÁN MADISON MD [Primary Care Provider] - Follow up as needed
[2020-11-03 18:38] LABS: APPEARANCE,URINE CLOUDY; BILIRUBIN,URINE NEGATIVE (NEGATIVE); COLOR,URINE AMBER; GLUCOSE, URINE NEGATIVE (NEGATIVE); KETONES,URINE NEGATIVE (NEGATIVE); LEUKOCYTE ESTERASE,URINE NEGATIVE (NEGATIVE); NITRITE,URINE NEGATIVE (NEGATIVE); PROTEIN,URINE >=500 mg/dL (NEGATIVE); URINE SPECIFIC GRAVITY 1.026; UROBILINOGEN,URINE NEGATIVE mg/dL (<2.0)
[2020-11-03] MEDS ORDERED: CEFTRIAXONE INJ 1000 MG VIAL IM ONE (19:14)
[2020-11-03] MEDS ORDERED: LIDOCAINE 1% INJ-PF (10 MG/ML) 30 ML SDV INJ ONE (19:14)
--- NOTE | 2020-11-03 19:20 | EKG REPORT ---
SEVERITY:- ABNORMAL ECG - SINUS RHYTHM MULTIPLE ATRIAL PREMATURE COMPLEXES LVH BY VOLTAGE INFERIOR INFARCT, AGE INDETERMINATE : Confirmed by: Nhi Grider MD 03-Nov-2020 19:19:15
[2020-11-03 19:59] VITALS: BP 128/67
== END 2020-11-03 20:04 | disposition home or self-care (01) ==
LOC: ER 10:20
DX: U07.1 COVID-19 (principal); N30.01 Acute cystitis with hematuria; R11.0 Nausea; R42 Dizziness and giddiness; R53.1 Weakness; R19.7 Diarrhea, unspecified; I10 Essential (primary) hypertension; Z79.899 Other long term (current) drug therapy; Z91.048 Other nonmedicinal substance allergy status
CPT/HCPCS: 93005; 99285; 96372; 96361; 96374; 36415; 87086; 85025; 80053; 81001; 71045; 93010; J3490; J0696; J2405; J7030